=== PATIENT | male | born 2005 | race Caucasian/White ===

== ENCOUNTER → 2025-05-02 | Day surgery (SDC) | payer OTHER ==
[~2025-05-02] MED LIST: CIPRO HC OTIC S10 ML RIGHT EAR; FENTANYL CITRATE/PF 100MCG/2 ML INJ ONE; LIDOCAINE HCL 2% LOCAL INJ 5 ML SDV VIAL INJ ONE; MIDAZOLAM HCL 2 MG/2 ML VIAL ONE; ONDANSETRON HCL INJ 2MG/ML 2ML 2 MG/ML VIAL ONE; PROPOFOL IV EMULSION 10 MG/ML 20 ML VIAL ONE; SEVOFLURANE INHAL SOLN 250 ML PEN BTL ONE
[2025-05-02] MEDS: LACTATED RINGER'S 1,000 ML ONE (06:29)
[2025-05-02 16:00] VITALS: BP 130/87; PULSE 96; RESP 16; O2SAT 98
== END | disposition home or self-care (01) ==
LOC: OR 05:48 → EDSEX 07:30
PROVIDERS: ATTEND Otolaryngology Otolaryngology/Facial Plastic Surgery
DX: H65.491 Other chronic nonsuppurative otitis media, right ear (principal); H74.41 Polyp of right middle ear; H93.11 Tinnitus, right ear; H90.A31 Mixed conductive and sensorineural hearing loss, unilateral, right ear with restricted hearing on the contralateral side; F17.290 Nicotine dependence, other tobacco product, uncomplicated
CPT/HCPCS: 31237; 69399; 69436; 88305; J2003; J2250; J2405; J2704; J3010; J7121